=== PATIENT | female | born 1970 | race Caucasian/White ===

== ENCOUNTER 2018-12-29 11:05 | Emergency (ER) | payer OTHER ==
[2018-12-29 11:18] VITALS: TEMP 98; BMI 26.6
[2018-12-29] MEDS ORDERED: SODIUM CHLORIDE 1,000 ML IV ONE (11:30)
--- NOTE | 2018-12-29 11:59 | PDOC ---
History of Present Illness - General Chief Complaint: Syncope/Near Syncope Stated Complaint: passed out and fell(witnessed per patient) Time Seen by Provider: 12/29/18 11:11 History Source: Patient Exam Limitations: No Limitations - History of Present Illness Initial Comments: 12/29/18 11:59 48y F hx of gastric bypass (2014), periphearl neuropathy, chronic pain secondary to cervical spine surgery (hx of paralysis with emergent neurosugery at [facility]), cholecystectomy presents with syncope, presents by private automobile. Pt states she felt alittle lightheaded this morning when she was in the car at [facility], while she was walking in the lot, she 'hit the heat' and syncopized. Pt denies any any preceeding headache, vision changes, numbness/ tingling/waeknses, cp, palppitations, sob, morillo, leg swelling, abd pain, new back pain. denies any diarrhea, melena, bpr, recent fever/chills, cough, dysuria. Pt remembers waking up on the ground and was able walk back to the car with her cane. pt states she took all of her medications this morning but hadnt eaten breakfast. No new meds (was recently started on clinda for an infection but has been on that for sevearl days without other symptoms). Pt now complaining of frnotal headache and a pressure like remi to the back of her neck radiating down her back. Pt also thinks she may be weaker than before for her legs and arms. no tongue biting oir urinary incontinence Pt notse chronic weakness of her upper etremities (she drop things when she holds things) and walks with a cane (friends states she should be using a walker ) Neurologist:Dr. Edwar MURILLO Constitutional - no reported Fever, Chills, HEENT: no reported vision changes, sore throat Respiratory: no reported cough, sob, hemoptysis Cardiac: no reported chest pain, palpitations, light headedness, leg swelling Abd/GI: no reported abd pain, nausea, vomiting, blood per rectum, melena, diarrhea : no reported dysuria, frequency, discharge Musculskelatal - no reported back pain, joint swelling skin - no reported bruising, erythema, rash neurological: no reported headache, numbness, focal weakness, tingling, ataxia, hematologic: no reported easy bruising, easy bleeding physiucal exam GENERAL: The patient is awake, alert, and fully oriented, Nontoxic - in no acute distress. HEAD: Normocephalic, contusion to R supraorbital ridge with tenderness to palptation EYES: extraocular movements intact, sclera anicteric, conjunctiva clear. ENT: Normal voice, Moist mucous membranes. NECK: moderat ttp to cervical spine ~C4-5, moderate diffuse ttp midlinethoracic/ lumbar spine. LUNGS: Breath sounds equal, clear to auscultation bilaterally. No wheezes, no rhonchi, no rales. HEART: Regular rate and rhythm, normal S1 and S2 without murmur, rub or gallop. ABDOMEN: Soft, nontender, No guarding, no rebound. No CVA tenderness EXTREMITIES: no edema NEUROLOGICAL: No facial assymetry, Normal speech, weakness of upper extremities bilaterally (elbow extension/flexion 4/5 and symmetric, [employer] strength approx the same, shoulder flexion/extension 1/5), b/l LE 1/5 (shows contraction of her quads with minimal movement of LE) PSYCH: Normal mood, normal affect. SKIN: Warm, Dry, normal turgor, RECTAL: +rectal tone, no blood during examination, ttp on cervical spine so c-collar was placed ddx syncope - psosible dehydration, consider metabolic derangement, anemia, occult infection, will ck labs, keg/trop, will start fluids for hydration. pt placed on hall monitor back pain - weakness - possible cervical spine trauma with weakness - however pts weakness seems inconsistent, there is likely baseline weakness, but the distribution of weakness is interesting as pt has diffus pain, extensive neurosurg history sp trauma, will image her entire spine 12/29/18 15:15 Past History - Past Medical History Allergies/Adverse Reactions: Allergies Allergy/AdvReac Type Severity Reaction Status Date / Time Penicillins Allergy Verified 12/29/18 11:09 Home Medications: Ambulatory Orders Escitalopram Oxalate [Lexapro -] 20 mg PO DAILY 05/28/18 Famotidine [Pepcid] 40 mg PO DAILY 05/28/18 Gabapentin 800 mg PO TID 05/28/18 Nortriptyline HCl [Pamelor -] 10 mg PO DAILY 05/28/18 levETIRAcetam [Keppra -] 500 mg PO BID 05/28/18 Clindamycin [Cleocin -] 300 mg PO TID 12/29/18 COPD: No Psychiatric Problems: Yes Seizures: Yes - Surgical History Cholecystectomy: Yes - Suicide/Smoking/Psychosocial Hx Smoking History: Current every day smoker Have you smoked in the past 12 months: Yes Number of Cigarettes Smoked Daily: 5 Information on smoking cessation initiated: Yes 'Breaking Loose' booklet given: 06/05/18 Hx Alcohol Use: No Drug/Substance Use Hx: No *Physical Exam - Vital Signs Last Vital Signs Temp Pulse Resp BP Pulse Ox 98 F 82 19 126/90 100 12/29/18 11:06 12/29/18 14:42 12/29/18 14:42 12/29/18 14:42 12/29/18 14:42 Heart Score/ECG Review - ECG Impressions Comment:: 12/29/18 12:18 Twelve-lead EKG was performed and reviewed by me. There is normal sinus rhythm with a normal rate. rate of 91 The axis is normal. The intervals are normal. There is normal R wave progression There are no ST or T wave abnormalities. Impression: Normal twelve-lead EKG ED Treatment Course - LABORATORY CBC & Chemistry Diagram: 12/29/18 12:00 12/29/18 11:43 - ADDITIONAL ORDERS Additional order review: Laboratory Results 12/29/18 12/29/18 12/29/18 12:00 11:43 11:43 Sodium 138 Potassium 4.2 Chloride 106 Carbon Dioxide 27 Anion Gap 5 L BUN 15.0 Creatinine 0.8 Est GFR (CKD-EPI)AfAm 102.47 Est GFR (CKD-EPI)NonAf 88.41 Random Glucose 134 H Calcium 8.7 Total Bilirubin 0.5 AST 18 ALT 14 Alkaline Phosphatase 79 Creatine Kinase 38 Troponin I < 0.03 Total Protein 6.6 Albumin 3.2 L Serum , Qual Negative 12/29/18 12:00 RBC 3.56 L MCV 104.9 H MCHC 32.4 RDW 13.6 MPV 7.6 Neutrophils % 65.6 Lymphocytes % 27.3 Monocytes % 4.5 Eosinophils % 2.2 Basophils % 0.4 - RADIOLOGY Radiology Studies Ordered: Category Date Time Status CERVICAL SPINE CT W/O CONTR [CT] Stat CT Scan 12/29/18 11:[address] W/O CONTRAST [CT] Stat CT Scan 12/29/18 11:[address] WITHOUT CONTRAST [CT] Stat CT Scan 12/29/18 11:[address] W/O CONTRAST [CT] Stat CT Scan 12/29/18 11:[address] W/O CONTRAST [CT] Stat CT Scan 12/29/18 11:55 Completed - Medications Given in the ED: ED Medications Discontinued Medications Generic Name Dose Route Start Last Admin Trade Name Anish PRN Reason Stop Dose Admin Acetaminophen 650 mg 12/29/18 14:20 12/29/18 14:42 Tylenol - PO 12/29/18 14:21 Not Given ONCE ONE Acetaminophen 1,000 mg 12/29/18 14:26 12/29/18 14:41 Ofirmev Injection - IVPB 12/29/18 14:27 1,000 mg ONCE ONE Administration Cyclobenzaprine HCl 10 mg 12/29/18 14:20 12/29/18 14:41 Flexeril - PO 12/29/18 14:21 10 mg ONCE ONE Administration Sodium Chloride 1,000 mls @ 1,000 mls/hr 12/29/18 11:30 12/29/18 12:05 Normal Saline - IV 12/29/18 12:29 1,000 mls/hr .Q1H ONE Administration Ibuprofen 400 mg 12/29/18 14:20 12/29/18 14:41 Motrin - PO 12/29/18 14:21 400 mg ONCE ONE Administration Medical Decision Making - Medical Decision Making 12/29/18 14:19 ct of spine appears normal with widely patent spinal canal no acute fx noted pt states she feels better will reassess 12/29/18 15:15 12/29/18 15:48 on reexam the pt is feeling improved moving all 4 extremities spnonoeusly and symmetrically ambulating at baseline (erquirs minmal assistance) syncope likely due to vasovagal. episode/dehydration will dc pt with pmd fu return precautions were dsicussed I discussed the physical exam findings, ancillary test results and final diagnoses with the patient. I answered all of the patient's questions. The patient was satisfied with the care received and felt comfortable with the discharge plan and treatment plan. The patient will call their primary care physician within 24 hours to arrange follow-up and will return to the Emergency Department with any new, persistent or worsening symptoms. *DC/Admit/Observation/Transfer Diagnosis at time of Disposition: Neck pain Syncope Qualifiers: Syncope type: unspecified Qualified Code(s): R55 - Syncope and collapse Head injury due to trauma Qualifiers: Encounter type: initial encounter Qualified Code(s): S09.90XA - Unspecified injury of head, initial encounter - Discharge Dispostion Disposition: HOME Condition at time of disposition: Improved Decision to Admit order: No - Referrals Referrals: Roberto Gomez MD [Staff Physician] - - Patient Instructions Printed Discharge Instructions: DI for Syncope in Adults (Fainting), DI for Closed Head Injury Additional Instructions: Return to the emergency department immediately with ANY new, persistent or worsening symptoms including headache, vision changes,numbness/tingling/weknass , neck pain, back pain or any other concerns. You MUST call and follow up with your doctor in 3-4 days for further evaluation of your symptoms. Results were discussed with you. Please make sure your doctor reviews the results of your emergency evaluation. Your Emergency Department visit is not complete without a follow up with your doctor. If you had any xrays during your visit, it was read preliminarily by myself, a Radiologist will review it and if there are any additional findings we will call you. Print Language: [place] - Post Discharge Activity
[2018-12-29 12:19] LABS: BASO % 0.4 % (0-2.0); EOS % 2.2 % (0-4.5); HEMATOCRIT 37.4 % (32.4-45.2); HEMOGLOBIN 12.1 GM/dl (10.7-15.3); LYMPH % 27.3 % (8-40); MCHC 32.4 g/dl (32.0-36.0); MEAN CELL VOLUME 104.9 fl (80-96); MEAN PLT VOLUME 7.6 fl (7.5-11.1); MONO % 4.5 % (3.8-10.2); NEUT % 65.6 % (42.8-82.8); PLATELET COUNT 292 K/MM3 (134-434); RBC 3.56 M/mm3 (3.60-5.2); RDW 13.6 % (11.6-15.6); WHITE BLOOD COUNT 5.8 K/mm3 (4.0-10.8)
[2018-12-29 12:50] LABS: ALBUMIN 3.2 g/dl (3.4-5.0); BILIRUBIN,TOTAL 0.5 mg/dl (0.2-1); CALCIUM 8.7 mg/dl (8.5-10); CREATININE 0.8 mg/dl (0.55-1.3); POTASSIUM 4.2 mmol/L (3.5-5.1); TOT PROT 6.6 g/dl (6.4-8.2)
[2018-12-29] MEDS ORDERED: CYCLOBENZAPRINE HCL 10 MG TABLET (FP) PO ONE (14:20)
[2018-12-29] MEDS ORDERED: ACETAMINOPHEN 325 MG TABLET (FP) PO ONE (14:20)
[2018-12-29] MEDS ORDERED: IBUPROFEN 400 MG TABLET (FP) PO ONE ×2 (14:20→14:28)
[2018-12-29] MEDS ORDERED: ACETAMINOPHEN 1000 MG/100 ML VIAL (NON FORMULARY) IVPB ONE (14:26)
[2018-12-29] MEDS ORDERED: CYCLOBENZAPRINE HCL 10 MG TABLET (FP) ONE (14:29)
[2018-12-29] MEDS ORDERED: ACETAMINOPHEN INJECTION 100 ML IVPB ONE (14:29)
[2018-12-29 14:43] VITALS: BP 126/90; PULSE 82
--- NOTE | 2018-12-31 10:51 | EKG ---
Test Reason : Blood Pressure : / mmHG Vent. Rate : 091 BPM Atrial Rate : 091 BPM P-R Int : 154 ms QRS Dur : 080 ms QT Int : 360 ms P-R-T Axes : 037 015 022 degrees QTc Int : 442 ms NORMAL SINUS RHYTHM NORMAL ECG NO PREVIOUS ECGS AVAILABLE Confirmed by JULIA TY MD ([id number]) on 12/31/2018 10:51:30 AM Referred By: DEDRA Confirmed By:JULIA TY MD
== END 2018-12-29 16:12 | disposition home or self-care (01) ==
LOC: FER 11:05
PROC: 3E0337Z Introduction of Electrolytic and Water Balance Substance into Peripheral Vein, Percutaneous Approach (ICD-10-PCS; principal; 2018-12-29)
DX: M54.2 Cervicalgia (principal); R55 Syncope and collapse; S09.90XA Unspecified injury of head, initial encounter; W18.39XA Other fall on same level, initial encounter; Y93.89 Activity, other specified; Y92.481 Parking lot as the place of occurrence of the external cause
CPT/HCPCS: 36415; 70450-TC; 70486-TC; 72125-TC; 72128-TC; 72131-TC; 80053; 82550; 84484; 84703; 85025; 93005; 96360; 99285-25; J0131; J7030

== ENCOUNTER 2019-02-13 13:29 | Inpatient (IN) | payer OTHER | END 2019-02-17 14:11 | disposition home or self-care (01) | LOC: JER 13:29 → J4S 02-14 13:47 → JERBED 19:34 ==

== ENCOUNTER 2020-08-01 11:23 | Emergency (ER) | payer BC, OTHER ==
[2020-08-01 11:33] VITALS: BP 121/84; PULSE 86; TEMP 99; BMI 29.9
== END 2020-08-01 13:40 | disposition home or self-care (01) ==
LOC: FER 11:23
DX: S62.522A Displaced fracture of distal phalanx of left thumb, initial encounter for closed fracture (principal)
CPT/HCPCS: 73030-TC-LT-FY; 73070-TC-LT-FY; 73110-TC-LT-FY; 73130-TC-LT-FY; 73630-TC-RT-FY; 99284-25